=== PATIENT | female | born 1965 | race Caucasian/White ===

== ENCOUNTER 2018-12-07 09:57 | Emergency (ER) | payer MEDICARE ==
[~2018-12-07] VITALS: Ht 162.6 cm; Wt 66.7 kg
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
[2018-12-07] MEDS ORDERED: HYDROCODONE/APAP 5/325MG 1 EACH TABLET ONE (10:18)
[2018-12-07] MEDS ORDERED: HYDROCODONE/APAP 5/325MG 1 EACH TABLET PO ONE (10:30)
[2018-12-07] MEDS ORDERED: HYDROCODONE/APAP 10/325MG 1 EA TABLET PO ONE (11:30)
[2018-12-07] MEDS ORDERED: HYDROCODONE/APAP 10/325MG 1 EA TABLET ONE (11:35)
--- NOTE | 2018-12-07 11:55 | NUR ---
Patient still c/o mild pain with movement, able to ambulate independently. Rx provided, patient discharged to home in stable condition. Family present. Written and verbal after care instructions given. Patient verbalizes understanding of instruction.
[2018-12-07 11:57] VITALS: BP 143/84
== END 2018-12-07 11:57 | disposition home or self-care (01) ==
LOC: ER 09:59
DX: S39.012A Strain of muscle, fascia and tendon of lower back, initial encounter (principal); S16.1XXA Strain of muscle, fascia and tendon at neck level, initial encounter; I10 Essential (primary) hypertension; Z98.84 Bariatric surgery status; Z88.0 Allergy status to penicillin; Z88.6 Allergy status to analgesic agent; Z90.49 Acquired absence of other specified parts of digestive tract; V49.49XA Driver injured in collision with other motor vehicles in traffic accident, initial encounter; Y93.89 Activity, other specified; Y92.488 Other paved roadways as the place of occurrence of the external cause; Y99.8 Other external cause status
CPT/HCPCS: 72125-TC; 72131-TC